=== PATIENT | male | born 1965 | race American Indian/Alaskan Native ===

== ENCOUNTER 2021-12-24 09:00 | Emergency (ER) | payer OTHER ==
[2021-12-24 09:13] VITALS: BP 124/94
--- NOTE | 2021-12-24 10:23 | XRay Report ---
LEFT HAND 3 VIEW(S) INDICATION / CLINICAL INFORMATION: pain COMPARISON: None available. FINDINGS: BONES / JOINT(S): Acute oblique fracture through the base of the fourth metacarpal. 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 SOFT TISSUES: No significant abnormality. ADDITIONAL FINDINGS: None. Signer Name: Negro Steele DO Signed: 12/24/2021 10:19 AM Workstation Name: [employer]
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
[2021-12-24] MEDS ORDERED: IBUPROFEN 800 MG TAB PO ONE (10:40)
== END 2021-12-24 12:00 | disposition home or self-care (01) ==
LOC: ED 09:00
DX: S62.315A Displaced fracture of base of fourth metacarpal bone, left hand, initial encounter for closed fracture (principal); V87.7XXA Person injured in collision between other specified motor vehicles (traffic), initial encounter; Y93.89 Activity, other specified; Y92.488 Other paved roadways as the place of occurrence of the external cause; Y99.8 Other external cause status
CPT/HCPCS: 99283